=== PATIENT | female | born 1970 | race Caucasian/White ===

== ENCOUNTER 2016-11-06 10:04 | Day surgery (SDC) | payer OTHER ==
[~2016-11-06] VITALS: Ht 172.7 cm; Wt 67.9 kg
[~2016-11-06 10:04] MED LIST: CLIN-73 PO; NAPR-260 PO
[2016-11-06] MEDS ORDERED: antibiotic for uti (12:15)
[2016-11-06 12:18] VITALS: Ht 172.7 cm; Wt 67.9 kg
[2016-11-06 12:57] VITALS: BP 124/90; PULSE 67; RESP 18
[2016-11-06] MEDS ORDERED: LIDOCAINE 4% SOLUTION 50 ML BTL ONE (12:57)
[2016-11-06] MEDS ORDERED: FENTAnyl 50 MCG/ML VIAL ONE ×2 (13:39)
[2016-11-06] MEDS ORDERED: MIDAZOLAM 1 MG/ML 2 ML INJ ONE ×3 (13:39)
[2016-11-06 13:55] VITALS: BP 103/57; RESP 20
--- NOTE | 2016-11-07 02:17 | GILP ---
DATE OF PROCEDURE: PREOPERATIVE DIAGNOSIS: Abdominal pain in the epigastric area. PROCEDURE DONE: Esophagogastroduodenoscopy, biopsy. POSTOPERATIVE DIAGNOSIS: Gastritis. DESCRIPTION OF PROCEDURE: After obtaining informed consent, the patient was sedated, monitored on o ximetry, EKG, blood pressure. Posterior pharynx anesthetized with 4% Xylocaine, and 3 mg of IV Vers ed, 75 mcg of fentanyl given. I then advanced the Olympus video upper endoscope into esophagus, sto mach, and duodenum. Examination demonstrated normal esophagus. Stomach showed mild gastritis in th e antrum. Random biopsies were done. Duodenum essentially normal up to second part. Scope was wit hdrawn. Fundus was also examined by retroflexion. It was unremarkable. Upon removal of scope, pat ient had no complication. Plan will be to await for biopsy report and follow up as outpatient. Pro ceed with colonoscopy also. Dictated By: SHRUTI BRANDON Conf#: [id number] DID#: [id number] CC: Micheal Combs;*EndCC*
--- NOTE | 2016-11-07 02:21 | GILP ---
DATE OF PROCEDURE: PREOPERATIVE DIAGNOSIS: Change in bowel habits. PROCEDURE DONE: Colonoscopy, rectal polypectomy with jumbo biopsy forceps. DESCRIPTION OF PROCEDURE: The patient was put in left lateral decubitus after obtaining informed co nsent. She was sedated further with 1 mg of IV Versed and 25 mcg of fentanyl. Rectal exam done. A dvanced an Olympus video pediatric colonoscope all the way to cecum. Cecum identified with ileoceca l valve and appendiceal opening. Cecum, ascending colon, transverse colon, descending colon normal. Sigmoid colon, somewhat tortuous, but normal. In the rectum at about 8 cm, a 3 to 4 mm polyp was noted. This was sessile. This was removed by multiple biopsy technique. By using jumbo biopsy com pletely, the polyp was removed and sent to histopathology. Retroflexion also done. It was unremarkable. Upon removal of scope, patient had no complication. Plan will be to await for biopsy report, follow up as outpatient, and consider repeat colonoscopy in 3 years depending on the biopsy report. Dictated By: SHRUTI BRANDON Conf#: [id number] DID#: [id number] CC: Micheal Combs;*EndCC*
== END 2016-11-06 14:41 | disposition home or self-care (01) ==
LOC: GIL 10:04
PROVIDERS: ATTEND Internal Medicine
DX: R19.4 Change in bowel habit (principal); K29.50 Unspecified chronic gastritis without bleeding; K63.5 Polyp of colon
CPT/HCPCS: 43239; 45380; 88305; 88312; J2250; J3010